=== PATIENT | female | born 1990 ===

== ENCOUNTER 2017-07-12 15:03 | Emergency (ER) | payer SELFPAY ==
[2017-07-12 15:03] VITALS: BMI 23.0
[2017-07-12 15:15] VITALS: BP 108/68; PULSE 81; RESP 16; TEMP 97.6; O2SAT 100
[2017-07-12] MEDS ORDERED: DiphenhydrAMINE 50 mg/ml Inj IVP STA (15:40)
[2017-07-12] MEDS ORDERED: Lactated Ringer's 500 ML IV STA (15:41)
--- NOTE | 2017-07-12 15:54 | ED PDOC ---
HPI: General Adult Time Seen by Provider: 07/12/17 15:19 Chief Complaint (Nursing): GI Problem Chief Complaint (Provider): vomiting and nausea History Per: Patient History/Exam Limitations: no limitations Onset/Duration Of Symptoms: Days (1) Current Symptoms Are (Timing): Still Present Additional Complaint(s): nausea and vomiting nonbilious nonbloody since this morning, initially thought of as a hangover Has been taking Xanax TID for 4 days up until last night, since being diagnosed with a panic attack on Monday No history of panic attacks or anxiety, but had episode of severe anxiousness and shakiness on Monday and presented to an ER in [place] and given that diagnosis with a prescription of xanax. Has not eaten well since then because the medication had made her too lethargic and have no energy for intake. Last food eaten was Monday. Works as a physician scribe and admits that she also drank alcohol last night while working and still taking the xanax. PMD: Dr Tejeda (last seen 3 years ago.) [place] [facility] [place] she has physicians in her family that can also provide regular medical care. Past Medical History Reviewed: Historical Data, Nursing Documentation, Vital Signs Vital Signs: Last Vital Signs Temp 97.6 F 07/12/17 15:10 Pulse 81 07/12/17 15:10 Resp 16 07/12/17 15:10 BP 108/68 07/12/17 15:10 Pulse Ox 100 07/12/17 16:07 - Medical History PMH: Anxiety, Hypercholesterolemia, Migraine Denies: Chronic Kidney Disease - Surgical History Other surgeries: Ovarian cyst rupture, breast augmentation - Family History Family History: States: No Known Family Hx - Social History Current smoker - smoking cessation education provided: No Alcohol: Social Drugs: Denies - Immunization History Hx Tetanus Toxoid Vaccination: No Hx Influenza Vaccination: No Hx Pneumococcal Vaccination: No - Home Medications Home Medications: Ambulatory Orders Medication Instructions Recorded Phenazopyridine HCl [Pyridium] 100 mg PO TID #6 tab 11/18/14 Sulfamethoxazole/Trimethopri 1 tab PO BID #10 tab 11/18/14 [Bactrim Ds 800 mg-160 mg] Cephalexin [Keflex] 500 mg PO QID #28 cap 11/19/14 Phenazopyridine HCl [Pyridium] 100 mg PO BID PRN #6 tab 11/19/14 Ciprofloxacin/Ciprofloxa HCl 500 mg PO Q12 #14 tab 06/03/15 [Ciprofloxacin] Phenazopyridine HCl [Pyridium] 100 mg PO TID #6 tab 06/03/15 Cephalexin [Keflex] 1 tab PO Q12 #14 cap 02/10/16 Cephalexin [Keflex] 500 mg PO QID #28 tab 03/30/16 Oseltamivir Phosphate [Tamiflu] 75 mg PO BID #10 capsule 12/21/16 Nitrofurantoin Macrocrystals 100 mg PO BID #10 cap 12/22/16 [Macrobid] Ondansetron [Zofran] 4 mg PO Q8H PRN #15 tab 12/22/16 Naproxen [Naprosyn] 500 mg PO Q12 PRN #20 tablet 02/01/17 Nitrofurantoin Macrocrystals 100 mg PO BID #13 cap 02/01/17 [Macrobid] Ondansetron ODT [Zofran ODT] 1 odt PO Q6 PRN #30 odt 07/12/17 - Allergies Allergies/Adverse Reactions: Allergies Allergy/AdvReac Type Severity Reaction Status Date / Time acetaminophen [From Percocet] AdvReac VOMITING Verified 07/12/17 15:10 oxycodone HCl [From Percocet] AdvReac VOMITING Verified 07/12/17 15:10 Review of Systems ROS Statement: Except As Marked, All Systems Reviewed And Found Negative (and as per HPI) Constitutional: Positive for: Weakness, Malaise Cardiovascular: Positive for: Palpitations, Light Headedness Gastrointestinal: Positive for: Nausea, Vomiting. Negative for: Abdominal Pain Genitourinary Female: Negative for: Dysuria, Frequency Neurological: Positive for: Dizziness Psych: Positive for: Anxiety. Negative for: Depression, Psychosis, Suicidal ideation Physical Exam - Reviewed Nursing Documentation Reviewed: Yes Vital Signs Reviewed: Yes - Physical Exam Appears: Positive for: Non-toxic, In Acute Distress Head Exam: Positive for: ATRAUMATIC, NORMOCEPHALIC Skin: Positive for: Warm, Dry Eye Exam: Positive for: EOMI, PERRL ENT: Positive for: Pharynx Is (clear), Other (tacky muc membranes) Neck: Positive for: Painless ROM, Supple Cardiovascular/Chest: Positive for: Regular Rate, Rhythm, Chest Non Tender. Negative for: Murmur Respiratory: Positive for: Normal Breath Sounds. Negative for: Rales, Rhonchi, Respiratory Distress Gastrointestinal/Abdominal: Positive for: Soft. Negative for: Tenderness Back: Positive for: Normal Inspection. Negative for: Decreased ROM Extremity: Positive for: Normal ROM. Negative for: Deformity Lymphatic: Negative for: Adenopathy Neurologic/Psych: Positive for: Alert, manometer technician II-XII (intact), Oriented (x3), Mood/ Affect (mildly anxious affect), Gait (normal). Negative for: Motor/Sensory Deficits - Laboratory Results Result Diagrams: 07/12/17 16:00 07/12/17 16:00 - ECG ECG: Positive for: Interpreted By Me ECG Rhythm: Positive for: Normal QRS, Normal ST Segment, Sinus Rhythm, Right Bundle Branch Block O2 Sat by Pulse Oximetry: 100 Pulse Ox Interpretation: Normal - Progress Re-evaluation Time: 18:00 Condition: Improved Disposition - Clinical Impression Clinical Impression: Dehydration Counseled Patient/Family Regarding: Studies Performed, Diagnosis, Need For Followup, Rx Given - Disposition Referrals: Tyree Lopez [Outside] ([facility] will call you tomorrow to follow up to see how you are doing.) Disposition: Routine/Home Disposition Time: 18:00 Condition: IMPROVED Additional Instructions: REST AND DRINK PLENTY OF HYDRATING FLUIDS TAKE ZOFRAN NEEDED FOR NAUSEA Prescriptions: Ondansetron ODT [Zofran ODT] 1 odt PO Q6 PRN #30 odt PRN Reason: Nausea/Vomiting Instructions: Dehydration (ED) Forms: [employer] (Estonian), [employer] ED School/Work Excuse
[2017-07-12] MEDS ORDERED: DiphenhydrAMINE 50 mg/ml Inj ONE (15:56)
[2017-07-12 16:35] LABS: BASO % 0.4 % (0.0-2.0); EOS % 0.2 % (0.0-4.0); HEMOGLOBIN 13.6 g/dL (12.0-16.0); LYMPH % 11.4 % (20.0-40.0); MEAN CELL VOLUME 94.7 fl (81.0-99.0); MEAN CORPUSCULAR HEMOGLOBIN 31.6 pg (27.0-31.0); MEAN CORPUSCULAR HGB CONC 33.3 g/dL (33.0-37.0); MEAN PLATELET VOLUME 9.7 fl (7.2-11.7); MONO # 0.5 K/uL (0.0-0.8); MONO % 5.3 % (0.0-10.0); NEUT # 7.1 K/uL (1.8-7.0); NEUT % 82.7 % (50.0-75.0); RBC 4.31 Mil/uL (3.80-5.20); RED CELL DISTRIBUTION WIDTH 12.8 % (11.5-14.5); WHITE BLOOD COUNT 8.6 K/uL (4.8-10.8)
[2017-07-12 16:47] LABS: ALB/GLOB RATIO 1.4 (1.0-2.1); ALBUMIN 4.7 g/dL (3.5-5.0); ALT/SGPT 100 U/L (9-52); AST/SGOT 88 U/L (14-36); BLOOD UREA NITROGEN 17 mg/dl (7-17); GFR AFRICAN-AMERICAN > 60; GFR NON-AFRICAN AMERICAN > 60; LIPASE 124 U/L (23-300); MAGNESIUM 1.7 MG/DL (1.6-2.3)
[2017-07-12 16:49] LABS: BARBITURATES, UR NEGATIVE (NEGATIVE); BENZODIAZEPINES, UR POSITIVE (NEGATIVE); OPIATES, UR NEGATIVE (NEGATIVE); PHENCYCLIDINE, UR NEGATIVE (NEGATIVE)
--- NOTE | 2017-07-13 08:03 | CARD ---
APPROVED REPORT EKG Measurement Heart [id number] <Conclusion> Normal sinus rhythm Incomplete right bundle branch block Borderline ECG
== END 2017-07-12 18:45 | disposition home or self-care (01) ==
LOC: H.ER 15:03
DX: E86.0 Dehydration (principal)
CPT/HCPCS: 80053; 83690; 83735; 84100; 84443; 85025; 93005; 96361; 96374; 96375; 99284; G0480; J1200; J2550; J7042; J7120

== ENCOUNTER 2017-10-28 11:22 | Emergency (ER) | payer SELFPAY ==
[2017-10-28 11:32] VITALS: BP 99/66; PULSE 68; TEMP 97
[2017-10-28] MEDS ORDERED: Sodium Chloride 0.9% 1,000 ML IV STA (12:04)
[2017-10-28 12:17] VITALS: O2SAT 98
--- NOTE | 2017-10-28 12:31 | ED PDOC ---
HPI: Hypertension/Hypotension Time Seen by Provider: 10/28/17 11:42 Chief Complaint (Nursing): Dizziness/Lightheaded Chief Complaint (Provider): Palpitations History Per: Patient History/Exam Limitations: no limitations Onset/Duration Of Symptoms: Hrs Current Symptoms Are (Timing): Still Present Associated Symptoms: Dizziness Additional Complaint(s): Joanne Davis, a 27 year old female, presents to the ED complaining of palpitations which began this morning. The patient states that her palpitations are associated with dizziness and shortness of breath. She states that she recently returned from [place] which was a 10 hour flight. Denies leg pain, chest pain. Past Medical History Reviewed: Historical Data, Nursing Documentation, Vital Signs Vital Signs: Last Vital Signs Temp 97 F L 10/28/17 11:30 Pulse 68 10/28/17 11:30 Resp BP 99/66 L 10/28/17 11:30 Pulse Ox 98 10/28/17 12:15 - Medical History PMH: Anxiety, Hypercholesterolemia, Migraine Denies: Chronic Kidney Disease Other PMH: ruptures ovarian cyst - Family History Family History: States: Unknown Family Hx - Immunization History Hx Tetanus Toxoid Vaccination: No Hx Influenza Vaccination: No Hx Pneumococcal Vaccination: No - Home Medications Home Medications: Ambulatory Orders Medication Instructions Recorded Phenazopyridine HCl [Pyridium] 100 mg PO TID #6 tab 11/18/14 Sulfamethoxazole/Trimethopri 1 tab PO BID #10 tab 11/18/14 [Bactrim Ds 800 mg-160 mg] Cephalexin [Keflex] 500 mg PO QID #28 cap 11/19/14 Phenazopyridine HCl [Pyridium] 100 mg PO BID PRN #6 tab 11/19/14 Ciprofloxacin/Ciprofloxa HCl 500 mg PO Q12 #14 tab 06/03/15 [Ciprofloxacin] Phenazopyridine HCl [Pyridium] 100 mg PO TID #6 tab 06/03/15 Cephalexin [Keflex] 1 tab PO Q12 #14 cap 02/10/16 Cephalexin [Keflex] 500 mg PO QID #28 tab 03/30/16 Oseltamivir Phosphate [Tamiflu] 75 mg PO BID #10 capsule 12/21/16 Nitrofurantoin Macrocrystals 100 mg PO BID #10 cap 12/22/16 [Macrobid] Ondansetron [Zofran] 4 mg PO Q8H PRN #15 tab 12/22/16 Naproxen [Naprosyn] 500 mg PO Q12 PRN #20 tablet 02/01/17 Nitrofurantoin Macrocrystals 100 mg PO BID #13 cap 02/01/17 [Macrobid] Ondansetron ODT [Zofran ODT] 1 odt PO Q6 PRN #30 odt 07/12/17 Cephalexin [cephalexin] 500 mg PO BID #20 cap 09/29/17 Ibuprofen [Motrin] 600 mg PO Q6 #20 tab 09/29/17 - Allergies Allergies/Adverse Reactions: Allergies Allergy/AdvReac Type Severity Reaction Status Date / Time acetaminophen [From Percocet] AdvReac VOMITING Verified 09/29/17 11:19 oxycodone HCl [From Percocet] AdvReac VOMITING Verified 09/29/17 11:19 Review of Systems ROS Statement: Except As Marked, All Systems Reviewed And Found Negative Cardiovascular: Positive for: Palpitations Respiratory: Positive for: Shortness of Breath Neurological: Positive for: Dizziness Physical Exam - Reviewed Nursing Documentation Reviewed: Yes Vital Signs Reviewed: Yes - Physical Exam Appears: Positive for: Non-toxic, No Acute Distress Head Exam: Positive for: ATRAUMATIC, NORMAL INSPECTION, NORMOCEPHALIC Skin: Positive for: Normal Color, Warm, Dry. Negative for: Rash Eye Exam: Positive for: Normal appearance, EOMI, PERRL. Negative for: Nystagmus ENT: Positive for: Normal ENT Inspection. Negative for: Pharyngeal Erythema, Tonsillar Swelling Neck: Positive for: Normal, Painless ROM Cardiovascular/Chest: Positive for: Regular Rate, Rhythm, Chest Non Tender. Negative for: Tachycardia Respiratory: Positive for: Normal Breath Sounds. Negative for: Rales, Rhonchi, Wheezing, Respiratory Distress Gastrointestinal/Abdominal: Positive for: Normal Exam, Bowel Sounds, Soft. Negative for: Tenderness, Mass, Guarding, Rebound Back: Positive for: Normal Inspection. Negative for: L CVA Tenderness, R CVA Tenderness Extremity: Positive for: Normal ROM. Negative for: Tenderness (no calf tenderness), Deformity, Swelling (no calf swelling) Lymphatic: Positive for: Normal Exam. Negative for: Adenopathy Neurologic/Psych: Positive for: Alert, Oriented, Gait - Laboratory Results Result Diagrams: 10/28/17 12:35 - ECG O2 Sat by Pulse Oximetry: 98 (RA) Pulse Ox Interpretation: Normal Medical Decision Making Medical Decision Makin Initial Impression 27 y/o female presenting with dizziness and palpitations given recent trip to [place] - Initial Plan: * EKG * CMP * Upreg * Udip * CBC * D Dimer * CXR - r/o thromboembolic phenomenon * NS 1000ml IV 100mls/hr * Reevaluation Scribe Attestation Documented by Apryl Perry acting as a scribe for Pascual lAmaguer MD. Provider Attestation All medical record entries made by the Scribe were at my direction and personally dictated by me. I have reviewed the chart and agree that the record accurately reflects my personal performance of the history, physical exam, medical decision making, and the department course for this patient. I have also personally directed, reviewed, and agree with the discharge instructions and disposition. Disposition - Clinical Impression Clinical Impression: Palpitations - Patient ED Disposition Is Patient to be Admitted: No - Disposition Referrals: Thierry Tejeda MD [Staff Provider] - Disposition: Routine/Home Disposition Time: 13:08 Condition: FAIR Instructions: Palpitations (ED) Forms: [employer] (Welsh)
[2017-10-28 12:52] LABS: BASO % 0.5 % (0.0-2.0); EOS # 0.1 K/uL (0.0-0.7); EOS % 1.2 % (0.0-4.0); HEMATOCRIT 39.6 % (34.0-47.0); LYMPH # 1.6 K/uL (1.0-4.3); LYMPH % 27.4 % (20.0-40.0); MEAN CELL VOLUME 95.6 fl (81.0-99.0); MEAN CORPUSCULAR HEMOGLOBIN 31.8 pg (27.0-31.0); MEAN CORPUSCULAR HGB CONC 33.3 g/dL (33.0-37.0); MEAN PLATELET VOLUME 9.6 fl (7.2-11.7); MONO # 0.4 K/uL (0.0-0.8); MONO % 7.4 % (0.0-10.0); NEUT # 3.8 K/uL (1.8-7.0); NEUT % 63.5 % (50.0-75.0); NRBC % 0.1 % (0.0-0.0); RED CELL DISTRIBUTION WIDTH 13.3 % (11.5-14.5); WHITE BLOOD COUNT 5.9 K/uL (4.8-10.8)
[2017-10-28 13:11] LABS: ALB/GLOB RATIO 1.4 (1.0-2.1); ALKALINE PHOSPHATASE 80 U/L (38-126); ALT/SGPT 82 U/L (9-52); AST/SGOT 67 U/L (14-36); BILIRUBIN,TOTAL 0.4 mg/dl (0.2-1.3); BLOOD UREA NITROGEN 12 mg/dl (7-17); CALCIUM 8.7 mg/dL (8.4-10.2); CARBON DIOXIDE 25 mmol/L (22-30); CHLORIDE 105 mmol/L (98-107); GFR AFRICAN-AMERICAN > 60; GLUCOSE,RANDOM 71 mg/dL (65-105); SODIUM 143 mmol/l (132-148); TOTAL PROTEIN 7.8 G/DL (6.3-8.2)
--- NOTE | 2017-10-28 14:23 | RAD ---
HISTORY: palpitations COMPARISON: Comparison chest dated 12/22/2016. TECHNIQUE: Chest PA and lateral FINDINGS: LUNGS: No active pulmonary disease. PLEURA: No significant pleural effusion identified. No pneumothorax apparent. CARDIOVASCULAR: Normal. OSSEOUS STRUCTURES: No significant abnormalities. VISUALIZED UPPER ABDOMEN: Normal. OTHER FINDINGS: None. IMPRESSION: No active disease.
--- NOTE | 2017-10-29 11:07 | CARD ---
APPROVED REPORT EKG Measurement Heart [id number] <Conclusion> Sinus bradycardia with sinus arrhythmia Incomplete right bundle branch block Borderline ECG
== END 2017-10-28 13:31 | disposition home or self-care (01) ==
LOC: H.ER 11:22
DX: R00.2 Palpitations (principal); E78.00 Pure hypercholesterolemia, unspecified; F41.9 Anxiety disorder, unspecified; I10 Essential (primary) hypertension; Z88.5 Allergy status to narcotic agent
CPT/HCPCS: 71020; 80053; 81025; 85025; 85378; 93005; 99283; J7040